=== PATIENT | male | born 1950 | race African-American/Black ===

== ENCOUNTER 2022-08-04 11:00 | Outpatient (CLI) | payer MEDICARE, SELFPAY ==
--- NOTE | ~2022-08-04 | US_ITS ---
EXAMINATION: US soft tissue upper back DATE: 08/04/2022 11:31 INDICATION: Palpable lump at the lumbar region. TECHNIQUE: Multiple grayscale and Doppler ultrasound images of the region of concern at the mid lumba r region. were obtained. COMPARISON: None FINDINGS: Region of concern is a located 11 x 10 x 4 mm hypoechoic mass with appears be a small central echogen ic hilum favoring a lymph node. This located in the relatively superficial subcutaneous tissues 5 mm deep to the skin surface. No other abnormal masses or fluid collections identified. IMPRESSION: 1. 11 x 10 x 4 mm subcutaneous nodule at the region of concern with suggestion of a central echogenic hilum which would favor a likely reactive lymph node which remains within normal limits for size. Re commend continued clinical follow-up with repeat imaging if there are changes on physical exam. Reviewed, dictated and finalized at location A. IMPRESSION: 1. 11 x 10 x 4 mm subcutaneous nodule at the region of concern with suggestion of a central echogenic hilum which would favor a likely reactive lymph node whi ch remains within normal limits for size. Recommend continued clinical follow-u p with repeat imaging if there are changes on physical exam.
== END 2022-08-04 11:01 | disposition home or self-care (01) ==
PROVIDERS: PCP Internal Medicine; Visit Provider Internal Medicine
DX: R22.2 Localized swelling, mass and lump, trunk (principal)
CPT/HCPCS: 76604

== ENCOUNTER 2022-11-03 10:58 | Outpatient (CLI) | payer MEDICARE, SELFPAY ==
--- NOTE | ~2022-11-03 | XR_ITS ---
XR knee RT 3V 11/03/2022 11:38 Indication: Osteoarthritis of the right knee. Procedure: 3 views right days Comparison: No prior studies for comparison. Findings: There is mild osteoarthritis of the medial compartment. No fracture, subluxation or disloca tion. No significant joint effusion. Impression: 1: Mild medial compartmental osteoarthritis. Reviewed, dictated and finalized at location A. OR SVP Impression: 1: Mild medial compartmental osteoarthritis.
== END 2022-11-03 10:59 | disposition home or self-care (01) ==
PROVIDERS: PCP Internal Medicine; Visit Provider Internal Medicine
DX: M17.11 Unilateral primary osteoarthritis, right knee (principal)
CPT/HCPCS: 73562

== ENCOUNTER 2024-10-28 16:19 | Outpatient (CLI) | payer MEDICARE, SELFPAY ==
--- NOTE | ~2024-10-28 | XR_ITS ---
EXAMINATION: XR lumbar spine min 4V DATE: 10/28/2024 16:41 INDICATION: Chronic back pain. Lumbar radiculopathy. TECHNIQUE: 5 views of lumbar spine including flexion and extension views were obtained. COMPARISON: None. FINDINGS: There is 3 degrees dextrocurvature of thoracolumbar spine. There is 3 mm anterolisthesis of L4 on L5. There is no abnormal motion with flexion or extension. Vertebral body heights are normal. There is mildly decreased disc height at L4-L5. There is multilevel facet joint osteoarthritis, moder ate to severe in lower lumbar spine. IMPRESSION: 1. Mild lumbar spondylosis. Reviewed, dictated and finalized at location A. T SPEC IMPRESSION: 1. Mild lumbar spondylosis.
== END 2024-10-28 16:20 | disposition home or self-care (01) ==
PROVIDERS: PCP Internal Medicine; Visit Provider Internal Medicine
DX: M47.816 Spondylosis without myelopathy or radiculopathy, lumbar region (principal)
CPT/HCPCS: 72110